=== PATIENT | female | born 1970 | race Caucasian/White ===

== ENCOUNTER 2018-04-11 06:25 | Day surgery (SDC) | payer BC ==
[~2018-04-11] VITALS: Ht 172.7 cm; Wt 108.9 kg
[~2018-04-11 06:25] MED LIST: ACET-2358 PO; ALBU17AE26 IH; CAT.1 PO; DICY20TA55 PO; HYDR50CA PO; LEVO1TAB32 PO; LOPE2CAP PO; MAGN800O PO; METH-364 PO; PROM25TA15 PO; TRAZ100T18 PO; TRAZ300T2 PO
[2018-04-11 06:46] LABS: HCG,QUAL RESULT NEGATIVE (NEGATIVE)
[2018-04-11] MEDS ORDERED: COCAINE 4% SOLUTION TP ONE (09:31)
[2018-04-11] MEDS ORDERED: LR 1,000 ML IV SCH (10:11)
[2018-04-11] MEDS ORDERED: METOCLOPRAMIDE HCL 10 MG/2 ML VIAL IVP PRN (10:15)
[2018-04-11] MEDS ORDERED: MORPHINE 4 MG/ML INJ. SYRINGE IVP PRN ×3 (10:15)
[2018-04-11] MEDS ORDERED: MIDAZOLAM HCL 5 MG/ML VIAL (VERSED) IV ONE (11:05)
[2018-04-11] MEDS ORDERED: NS IRRIG SOLN 1000 ML IR ONE (11:05)
[2018-04-11] MEDS ORDERED: LIDOCAINE/EPI 1% 1:100000 20 ML VIAL INJ ONE (11:05)
[2018-04-11] MEDS ORDERED: CEFAZOLIN 2 GM IVPB PREMIX 50 ML IV ONE (11:05)
[2018-04-11] MEDS ORDERED: fentaNYL CITRATE 250 MCG/5 ML AMP ONE (11:05)
[2018-04-11] MEDS ORDERED: ATROPINE SULFATE 0.4 MG/ML VIAL ONE (11:05)
[2018-04-11] MEDS ORDERED: ROCURONIUM BROMIDE 10 MG/ML (ZEMURON) ONE (11:05)
[2018-04-11] MEDS ORDERED: PROPOFOL 200MG/ 20ML VIAL (DIPRIVAN) IV ONE (11:05)
[2018-04-11] MEDS ORDERED: DEXAMETHASONE SOD PHOSPHATE 4 MG/ML VIAL ONE (11:05)
[2018-04-11] MEDS ORDERED: OXYMETAZOLINE HCL 0.05% NASAL SPRAY NS ONE (11:05)
[2018-04-11] MEDS ORDERED: SEVOFLURANE 15 MIN GAS INH ONE (11:05)
[2018-04-11] MEDS ORDERED: LR 1,000 ML IV.SOLN IV ONE (11:05)
[2018-04-11] MEDS ORDERED: ONDANSETRON HCL 4 MG/2 ML VIAL ONE (11:05)
[2018-04-11] MEDS ORDERED: MORPHINE 4 MG/ML INJ. SYRINGE ONE ×3 (11:14→11:44)
[2018-04-11 12:00] VITALS: BP_SYST 155
[2018-04-11] MEDS ORDERED: HYDROcodone/ACETAMIN 5-325 MG TAB (NORCO/ VICODIN) ONE (12:37)
[2018-04-11] MEDS ORDERED: HYDROcodone/ACETAMIN 5-325 MG TAB (NORCO/ VICODIN) PO ONE (12:45)
[2018-04-11] MEDS ORDERED: ONDANSETRON 4 MG ODT TAB PO PRN (12:45)
[2018-04-11] MEDS ORDERED: ONDANSETRON HCL 4 MG/2 ML VIAL IVP PRN (12:45)
[2018-04-11] MEDS ORDERED: HYDROcodone/ACETAMIN 5-325 MG TAB (NORCO/ VICODIN) PO PRN (12:45)
== END 2018-04-11 13:35 | disposition home or self-care (01) ==
LOC: SMU 06:25 → SDS 06:25
PROVIDERS: ATTEND Otolaryngology
DX: J32.0 Chronic maxillary sinusitis (principal); I10 Essential (primary) hypertension; J45.909 Unspecified asthma, uncomplicated; E66.3 Overweight; M19.90 Unspecified osteoarthritis, unspecified site
CPT/HCPCS: 84703; 88305; 88313; 88341; 88342; J0461; J0690; J1100; J2250; J2270; J2405; J2704; J3010; J7120